=== PATIENT | female | born 1975 | race Caucasian/White ===

== ENCOUNTER 2024-01-29 15:17 | Outpatient (CLI) | payer BC | END 2024-01-29 15:18 | disposition home or self-care (01) | LOC: CSHULT 15:17 | PROVIDERS: ATTEND Specialist | DX: I42.8 Other cardiomyopathies (principal) | CPT/HCPCS: 93306 ==

== ENCOUNTER 2025-04-12 13:23 | Outpatient (CLI) | payer BC | END 2025-04-12 13:24 | disposition home or self-care (01) | LOC: CSHMRI 13:23 | PROVIDERS: ATTEND Nurse Practitioner Acute Care | DX: M76.02 Gluteal tendinitis, left hip (principal); I42.8 Other cardiomyopathies; S73.192A Other sprain of left hip, initial encounter | CPT/HCPCS: 93306 ==